=== PATIENT | female | born 1990 | race Two or more races ===

== ENCOUNTER → 2024-06-19 | Outpatient (CLI) | payer BC, SELFPAY ==
--- NOTE | 2024-06-19 09:52 | XR_ITS ---
Examination: Upright PA chest single view TECHNIQUE: Upright PA chest single view Exam date and time: June 19, 2024 0956 hours INDICATIONS: Positive PPD FINDINGS: Normal heart size Lungs are clear. The osseous structures are intact IMPRESSION: No active disease No radiographic findings of tuberculosis
== END | disposition home or self-care (01) ==
LOC: COPL 09:23
PROVIDERS: PCP Family Medicine; Referring Provider Specialist; Visit Provider Specialist
DX: R76.11 Nonspecific reaction to tuberculin skin test without active tuberculosis (principal)
CPT/HCPCS: 71045

== ENCOUNTER 2024-11-21 15:32 | Inpatient (IN) | payer BC, MEDICAID, SELFPAY ==
[2024-11-21] VITALS (10 sets, daily range): BP systolic 117–135; BP diastolic 59–88; PULSE 73–89; RESP 16–98; TEMP 36.6; BMI 32.9
--- NOTE | 2024-11-21 15:00 | XR_ITS ---
Examination: Biophysical profile, ultrasound Date and time of exam: November 21 thousand 25, 1512 hours INDICATIONS: Nonreactive stress test in the doctor's office today Technique: Multiple transabdominal sonographic images of the pelvis abdomen obtained. Attention is directed to the breathing movement, gross body movement, amniotic fluid volume and tone. Findings: Amniotic fluid index Total biophysical profile is 6 of 8. breathing movement is 2. Gross body movement is 2. tone is 2. Qualitative amniotic fluid volume is 2 0 Impression: Biophysical profile is 6 of 8.
--- NOTE | 2024-11-21 15:39 | XR_ITS ---
Examination: age Limited TECHNIQUE: Limited transabdominal sonographic images pelvis Date and time: November 21, 2024 1557 hours INDICATIONS: Labor induction today, unknown presentation. FINDINGS: Viable uterine gestation cephalic presentation. spine maternal left. Cardiac motion 138 BPM. Placenta anterior IMPRESSION: Viable intrauterine gestation cephalic presentation.
[2024-11-21 17:15] LABS: Basophils # (Auto) 0.1 Thou/mm3 (0.0-0.2); Basophils % (Auto) 1 % (0-2.5); Eosinophils # (Auto) 0.1 Thou/mm3 (0.0-0.5); Eosinophils % (Auto) 1 % (0-10); Hematocrit 37.0 % (36.0-46.0); Hemoglobin 12.7 g/dL (12.0-16.0); Immature Granulocytes Auto 0.21 Thou/mm3 (0.00-0.00); Lymphocytes # (Auto) 1.6 Thou/mm3 (1.0-4.8); Lymphocytes % (Auto) 18 % (10-50); Mean Corpuscular HGB Conc 34.3 g/dl (31.0-37.0); Mean Corpuscular Hemoglobin 31.2 pg (25.0-35.0); Mean Corpuscular Volume 91 fL (80-100); Monocytes # (Auto) 0.7 Thou/mm3 (0.0-0.8); Monocytes % (Auto) 8 % (0-12); Neutrophils # (Auto) 6.3 Thou/mm3 (1.8-7.7); Neutrophils % (Auto) 70 % (37-80); Nucleated Red Blood Cell # 0.00 Thou/mm3 (0.00-0.00); Nucleated Red Blood Cell % 0 /100 WBC (0); Platelet Count 191 Thou/mm3 (140-440); RDW Standard Deviation 45.5 fL (36.4-46.3); Red Blood Count 4.07 Miln/mm3 (4.00-5.20); White Blood Count 8.9 Thou/mm3 (3.6-11.0)
[2024-11-21 18:07] LABS: Syphilis Nonreactive (Nonreactive)
[2024-11-22] VITALS (62 sets, daily range): BP systolic 111–130; BP diastolic 58–80; PULSE 63–107; RESP 16–98; TEMP 36.1–36.8; O2SAT 91–100
--- NOTE | 2024-11-22 07:19 | PD.LDHP ---
Documentation for date of: 11/22/24 OB Labor/Induct. HPI History of Present Illness Chief complaint: Oligohydramnios : 1 Para: 0 Term pregnancies: 0 pregnancies: 0 Living children: 0 History of Abortions: Spontaneous and Elective: 0 History of Vaginal deliveries: 0 History of sections: No History of : No Date of last menstrual period: 02/15/24 ARELY: 11/21/24 Gestational age based on last menstrual period: 40 History of present illness: Roz Brown presents to labor and delivery triage after being sent from her doctor's office due to a prolonged deceleration. She was initially noted to have a category one strip in triage, but her amniotic fluid index (MICHELLE) was found to be zero. Her current has been complicated by uterine size-date discrepancy, iron deficiency anemia, and asymptomatic bacteriuria. She has a history of latent tuberculosis and was Quantiferon-Gold positive on tuberculosis screening, though details of follow-up are not available. Roz is Rh-negative and received Rhogam in the third trimester. Given the prolonged deceleration observed at her doctor's office and the finding of zero MICHELLE, Roz was admitted for induction of labor. She has no reported symptoms or complaints at this time. She is a 34-year-old female with an obstetric history of A0 L0. She is currently at 40 weeks and 0 days gestation with an estimated due date of November 21, 2024 based on her last menstrual period. 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 Diagnostic Test Results and Labs: - MICHELLE (Amniotic Fluid Index): 0 - Blood group: O-negative - Antibodies: Not detected - HIV: Negative - RPR: Nonreactive - Hepatitis B surface antigen: Negative - Rubella: Immune - Glucose tolerance test: - 1-hour: 162 mg/dL - 3-hour: 89 mg/dL, 166 mg/dL, 140 mg/dL, 94 mg/dL - Quantiferon-Gold (TB screening): Positive History of Present Adequate Care: Yes Labs Labs: Positive: Rubella Titre, Negative: RPR, Hepatitis B, HIV, Chlamydia, Gonorrhea and Group Beta Strep and Unknown: Herpes Type 1, Herpes Type 2 and Covid-19 Past Medical History Surgical History SURGICAL: Negative Section Meds Home Medications and Allergies Home Medications ?Medication ?Instructions ?Recorded ?Confirmed ?Type aspirin 81 mg tablet,delayed 81 mg PO QDAY 11/21/24 11/21/24 History release (Adult Low Dose Aspirin) ferrous sulfate 325 mg (65 mg 325 mg PO QDAY 11/21/24 11/21/24 History iron) tablet,delayed release vitamins no.102-iron 90 1 cap PO QDAY 11/21/24 11/21/24 History mg-folate 1 mg-dha 200 mg capsule Allergies Allergy/AdvReac Type Severity Reaction Status Date / Time NKA* Allergy Uncoded 11/21/24 14:48 OB Exam Physical Exam Vital signs: Temp Pulse Resp BP 98.3 F 63 16 123/75 11/22/24 05:30 11/22/24 07:10 11/21/24 14:54 11/22/24 07:10 Constitutional Constitutional: no acute distress Routine HEENT Exam Head: Present normocephalic and atraumatic Eye: Present EOMI and PERRL ENT: Present mucous membranes moist Routine Neck Exam Neck: Present supple and trachea midline Routine Cardiovascular Exam Cardiovascular: Present RRR Routine Abdominal Exam Abdominal: Present soft and normoactive bowel sounds Detailed Labor and Delivery Exam Dilation (cm): 0 Effacement (%): 0 Cervix position: posterior station: -4 Consistency: firm Presentation: Vertex Baseline heart rate: 140 monitor accelerations: 15x15 monitor decelerations: None Routine Extremities Exam Extremities: Present full ROM Routine Skin Exam Skin: Present intact, dry and warm Routine Neurological Exam Neurological: Present alert, oriented X3 and CN II-XII intact Routine Psychiatric Exam Psychiatric: Present normal affect and normal thought process OB Results Labs 11/21/24 16:10 Labs: Short CBC 11/21/24 Range/Units 16:10 WBC 8.9 (3.6-11.0) Thou/mm3 Hgb 12.7 (12.0-16.0) g/dL Hct 37.0 (36.0-46.0) % Plt Count 191 (140-440) Thou/mm3 OB Assessment & Plan Assessment and Plan (1) Oligohydramnios antepartum: Status: Acute Assessment and plan: Induction of labor: - 34-year-old at 40 weeks 0 days gestation admitted for induction. - Prolonged deceleration noted at doctor's office and anhydramnios (MICHELLE of zero) on triage evaluation. - Advanced maternal age and uterine size-date discrepancy as additional risk factors. Plan: - Admit patient to inpatient unit for induction of labor. - Initiate cervical ripening with Cervidil. - Obtain labs: CBC, type and screen, RPR. - Offer epidural analgesia when desired by patient. - Implement continuous maternal- monitoring. - Anticipate vaginal delivery. Anhydramnios: - Amniotic fluid index (MICHELLE) of zero on triage evaluation. - Contributing factor for admission and induction decision along with prolonged deceleration. Plan: - Address through induction of labor. - Continue close monitoring as part of labor management. Advanced maternal age: - 34 years old, classified as advanced maternal age for primigravida. - May contribute to increased risk during and labor. Plan: - Monitor closely during labor and delivery process. - Address any age-related risks through appropriate intrapartum management. Rh-negative blood type: - O-negative blood type identified. - Already received RhoGAM in third trimester for Rh incompatibility prophylaxis. Plan: - Confirm Rh status with type and screen. - Administer additional RhoGAM as indicated based on delivery outcome. History of latent tuberculosis: - Positive QuantiFERON-Gold test confirming latent tuberculosis. Plan: - Review tuberculosis status and any previous treatment. - Consider infectious disease consultation if needed for management during labor and period.
[2024-11-22] MEDS: FAMOTIDINE INJ 10 MG/ML VIAL 2 ML 20 MG IV (23:05)
[2024-11-22] MEDS: METOCLOPRAMIDE INJ 5 MG/ML VIAL 2 ML 10 MG IVP (23:05)
[2024-11-22] MEDS: ceFAZolin/D5W 2 GM IV 2 GM/100 ML BAG IV (23:06)
--- NOTE | 2024-11-22 23:38 | ESPR_ITS ---
Documentation for date of: 11/22/24 OB Labor Progress Note Pain Control Pain control: tolerating well Pelvic Exam Dilation (cm): Dimple Effacement (%): 50 station: -2 Amniotic membrane status: Intact Contractions Monitor mode: External Contraction frequency: 5-6 Contraction pattern: Coupling Contraction intensity: Mild Status status: Category ll (Baby 150s with recurrent variable decelerations to the 90s with slow return to baseline lasting approximately 3 minutes. Not in labor.) Assessment and Plan Assessment: induction ongoing Plan OB labor note: Comments: Patient is remote from delivery. She was being induced for an MICHELLE of 0. She or iginally presented from the office with a deceleration. Patient is starting to cramp now and started having irregular contractions. Her cervix remains a dimple 50 and -2. The baby is having recurrent decelerations. For primary low- transverse section.
[2024-11-23] VITALS (18 sets, daily range): BP systolic 103–144; BP diastolic 53–86; PULSE 62–89; RESP 13–22; TEMP 36.4–36.9; O2SAT 97–99
[2024-11-23] MEDS: OXYTOCIN in NS 20 units 20 UNIT/1,000 ML BAG 125 UNIT IV (01:30)
[2024-11-23] MEDS: KETOROLAC INJ 30 MG/ML VIAL IVP (02:07)
--- NOTE | 2024-11-23 03:00 | ESOP_ITS ---
Operative Note - [employer]OR [employer] Procedure Date of procedure: 11/22/24 Procedure Performed: Primary low-transverse section Indication: The patient is a 34-year-old G1, P0 at 40 and 1 sevenths weeks sent over from the office for monitoring secondary to a deceleration in the office. Her care is with Dr Jimenez. As part of her workup, an ultrasound was ordered and her BPP was 8 out of 8 the strip was reactive however the patient goldman d an MICHELLE of 0. She was admitted and induction of labor was attempted with Cytotec. After the patient's fourth Cytotec she started cramping regularly and then started having recurrent variable decelerations. Her cervix remained fingertip dilated 50% -2 station. As patient was remote from delivery with a very unfavorable cervix, she was offered a primary section due to intolerance of early labor and she accepted. Patient was consented for the procedure, she understood the risks of bleeding ,infection, blood transfusion, damage to bowel bladder blood vessels other organs and prolonged hospital stay should any the above occur. Pre-Op diagnosis: 1. Intrauterine at 40 and 1 sevenths weeks 2. Attempted induction of labor for severe oligohydramnios 3. Category 2 tracing, remote from delivery Post-Op diagnosis: Same Anesthesia type: Spinal Procedure description: After obtaining informed consent, the patient was brought back to the operating room and spinal anesthesia administered. She was then prepped and draped in the dorsal supine position with a leftward tilt in a normal sterile fashion. A Olea catheter was inserted to the patient's bladder. Patient was given 2 g of Ancef by anesthesia. A Pfannenstiel skin incision was made with a scalpel and carried down to the underlying fascia. Fascia was incised the midline and the fascial incision extended laterally using Marcum scissors. The superior aspect the fascia was grasped with Sukhdev clamps and the underlying rectus muscles dissected off using blunt and sharp dissection. This was repeated in the inferior aspect the incision. The rectus muscles were the midline, and the peritoneum was picked up and entered sharply with Metzenbaums. This was extended superiorly and inferiorly with good visualization of the bladder. The bladder blade was inserted and the uterus was incised in a low transverse fashion using a scalpel above the bladder reflection. The uterine incision was extended laterally using blunt dissection with the surgeon's fingers. The bag of water was ruptured and minimal fluid noted. The bladder blade was removed, and the infant was delivered atraumatically in a vertex presentation. The cord was clamped and cut after waiting one minute and the was handed off to the waiting pediatric staff. Cord blood was collected. Cord gases were saved. The placenta was then manually removed, and the uterus was exteriorized and cleared of all clots and debris. The uterine incision was repaired using 0 Monocryl in a running locked fashion. Excellent hemostasis was noted. The uter us was returned to the patient's abdominal cavity and copious irrigation carried out with warm normal warm normal saline. The uterine incision was reexamined and noted to be hemostatic. After ensuring the rectus muscles were hemostatic, these were reapproximated in the midline using a running suture of 0 Monocryl. The fascia was closed with 0 Vicryl in a running fashion. The subcutaneous tissues were irrigated and found to be hemostatic. These were reapproximated using running suture of 3-0 plain. The skin was closed with a subcuticular suture of 4-0 Monocryl. The patient tolerated the procedure well, sponge, lap, needle, and instrument counts were correct x 2. The patient went to the recovery area awake and in stable condition. Pathology was none. Fluids: crystalloid Fluid amount (mL): 3,000 Urine output (mL): 500 Specimen: none Implants: None Estimated blood loss (ml): 400 Findings: Liveborn female in the vertex presentation with a loose nuchal cord x 1. No meconium. Apgars were 8 and 9 weight was 6 pounds 5 ounces. The placenta was complete spontaneous grossly normal with no velamentous insertion and not a lot of calcification seen. Tubes, uterus and ovaries appeared grossly normal. Complications: none Surgical staff Operation Date: 11/23/24 00:15 Case Staff SLOT SHIFT MANAGER: Johnny Velez RN First Assistant: Gladys Merida Diagnosis Problem List Completed Was Problem List Reviewed/Reconciled?: Yes
[2024-11-23] MEDS: ONDANSETRON INJ 2 MG/ML INJ 2 ML 4 MG IV (03:02)
--- NOTE | 2024-11-23 03:07 | OBDSUM_ITS ---
Data ([facility]) Data Hx Section: No Maternal Blood Type: A Pos Rubella Titre: Negative RPR: Non-reactive Labs: Negative: RPR, Hepatitis B, HIV, Chlamydia, Gonorrhea and Group Beta Strep : 1 Term: 0 : 0 Livin Abortions: Spontaneous & Theraputic: 0 Delivery Data ([facility]) Labor Data Initiation of labor: Induction Induction/Augmentation Agent: Cytotec-PO and Cervidil ROM date: 11/23/24 ROM time: 23:51 Amniotic membrane rupture type: Artificial Amniotic fluid description: Clear Delivery Data EDC: 12/05/24 EDC calculated by:: LMP/early US confirmation Date of arrival to unit: 11/21/24 Time of arrival to unit: 16:00 delivery date: 11/23/24 delivery time: 23:51 Gestational age (weeks): 40 Gestational age (days): 1 Placenta delivery date: 11/23/24 Placenta delivery time: 23:52 Delivered by: [facility] ([facility]) Delivery nurse: YAHAIRA Summers [place] nurse: YAHAIRA Chaudhry Histology Supervisor at delivery: No Support person(s) at delivery: FOB IN OR Delivery Method Delivery method: Low Transverse Presentation: Vertex position: OA Anesthesia Type Anesthesia Type: Spinal Anesthesia type: Spinal Placenta Placenta delivery description: Spontaneous Cord blood sent to lab: Yes cord blood collection: Cord Blood Type Episiotomy Episiotomy description: None EBL Estimated blood loss (ml): 400 Umbilical Cord cord description: 3 Vessels Additional Procedures See op report for further details Complications Complications: None [facility] Data ([facility]) Data [facility]'s name: Ct order: 1 [facility]'s gender: Female Identification band number: [id number] weight (gms): 2850 g Weight (pounds): 6 lbs and 4.5 ozs length: 50.5 cm 1 minute: 8 5 minutes: 9 10 minutes: 9
--- NOTE | 2024-11-23 07:49 | PD.LDPPPRG ---
Subjective Subjective Interval history: Delivery type: Patient doing well this morning. No acute complaints. Ambulating, tolerating p.o. and voiding without difficulty. HTN/Pre-Eclampsia screen: No chest pain, shortness of breath, headache, visual changes, epigastric or right upper quadrant pain. Breast-feeding, lochia diminishing. Bowel: Flatus+/ BM+ Exam Vital Signs Temp Pulse Resp BP Pulse Ox O2 Del Method 97.7 F 83 14 114/80 98 Room Air 11/23/24 03:00 11/23/24 03:00 11/23/24 03:00 11/23/24 03:00 11/23/24 03:00 11/23/24 03:00 Constitutional Constitutional: no acute distress Routine HEENT Exam Head: Present normocephalic and atraumatic Eye: Present EOMI and PERRL ENT: Present mucous membranes moist Routine Neck Exam Neck: Present supple and trachea midline Routine Respiratory Exam Respiratory: Present chest non-tender, lungs clear, normal breath sounds and no resp distress Routine Cardiovascular Exam Cardiovascular: Present RRR Routine Abdominal Exam Abdominal: Present soft and normoactive bowel sounds Routine Extremities Exam Extremities: Present full ROM Routine Skin Exam Skin: Present intact, dry and warm Routine Neurological Exam Neurological: Present alert, oriented X3 and CN II-XII intact Routine Psychiatric Exam Psychiatric: Present normal affect and normal thought process Objective Labs 11/21/24 16:10 Assessment & Plan Problem List (1) Oligohydramnios antepartum: Status: Acute (2) delivery delivered: Status: Acute Assessment and plan: 1. Continue routine /post-op care 2. Labs reviewed, cbc appropriate 3. Remove dressing/Olea 4. Encourage to ambulate, shower 5. Encourage PO intake, breast feeding Time Spent With Patient Time: Total time spent is greater than 50% in coordination of care (as documented) at patient's floor/unit and/or counseling patient:
[2024-11-23] MEDS: DOCUSATE SOD 100 MG CAPSULE PO (09:48)
[2024-11-23 11:47] LABS: Basophils # (Auto) 0.0 Thou/mm3 (0.0-0.2); Basophils % (Auto) 0 % (0-2.5); Eosinophils # (Auto) 0.0 Thou/mm3 (0.0-0.5); Eosinophils % (Auto) 0 % (0-10); Hematocrit 33.1 % (36.0-46.0); Hemoglobin 11.5 g/dL (12.0-16.0); Immature Granulocytes Auto 0.10 Thou/mm3 (0.00-0.00); Lymphocytes # (Auto) 1.2 Thou/mm3 (1.0-4.8); Lymphocytes % (Auto) 13 % (10-50); Mean Corpuscular HGB Conc 34.7 g/dl (31.0-37.0); Mean Corpuscular Hemoglobin 31.8 pg (25.0-35.0); Mean Corpuscular Volume 91 fL (80-100); Monocytes # (Auto) 0.8 Thou/mm3 (0.0-0.8); Monocytes % (Auto) 8 % (0-12); Neutrophils # (Auto) 7.5 Thou/mm3 (1.8-7.7); Neutrophils % (Auto) 78 % (37-80); Nucleated Red Blood Cell # 0.00 Thou/mm3 (0.00-0.00); Nucleated Red Blood Cell % 0 /100 WBC (0); Platelet Count 187 Thou/mm3 (140-440); RDW Standard Deviation 45.4 fL (36.4-46.3); Red Blood Count 3.62 Miln/mm3 (4.00-5.20); White Blood Count 9.7 Thou/mm3 (3.6-11.0)
[2024-11-23] MEDS: HYDROcodone/APAP 5/325 TABLET 1 TAB PO (13:42)
[2024-11-24] MEDS: HYDROcodone/APAP 5/325 TABLET 2 TAB PO (00:31)
[2024-11-24] MEDS: SIMETHICONE 80 MG CHEW PO (00:31)
[2024-11-24] MEDS: IBUPROFEN TAB 400 MG TABLET 800 MG PO ×3 (02:18→22:42)
[2024-11-24 03:31] VITALS: BP 118/73; PULSE 74; RESP 18; TEMP 36.8; O2SAT 97
[2024-11-24 06:06] LABS: Basophils # (Auto) 0.0 Thou/mm3 (0.0-0.2); Basophils % (Auto) 0 % (0-2.5); Eosinophils # (Auto) 0.1 Thou/mm3 (0.0-0.5); Eosinophils % (Auto) 1 % (0-10); Hematocrit 32.4 % (36.0-46.0); Hemoglobin 11.1 g/dL (12.0-16.0); Immature Granulocytes Auto 0.14 Thou/mm3 (0.00-0.00); Lymphocytes # (Auto) 1.5 Thou/mm3 (1.0-4.8); Lymphocytes % (Auto) 13 % (10-50); Mean Corpuscular HGB Conc 34.3 g/dl (31.0-37.0); Mean Corpuscular Hemoglobin 31.6 pg (25.0-35.0); Mean Corpuscular Volume 92 fL (80-100); Monocytes # (Auto) 0.9 Thou/mm3 (0.0-0.8); Monocytes % (Auto) 7 % (0-12); Neutrophils # (Auto) 9.1 Thou/mm3 (1.8-7.7); Neutrophils % (Auto) 78 % (37-80); Nucleated Red Blood Cell # 0.00 Thou/mm3 (0.00-0.00); Nucleated Red Blood Cell % 0 /100 WBC (0); Platelet Count 184 Thou/mm3 (140-440); RDW Standard Deviation 47.1 fL (36.4-46.3); Red Blood Count 3.51 Miln/mm3 (4.00-5.20); White Blood Count 11.7 Thou/mm3 (3.6-11.0)
--- NOTE | 2024-11-24 07:19 | ESPR_ITS ---
RE: SALVATORE VERMA : 1990 DATE OF SERVICE: 11/24/2024 Postop day number 1. The patient denies any problem or complaint. She is voiding and ambulating and tolerating regular diet, passing flatus. She denies any excessive vaginal bleeding. She denies any dizziness or lightheadedness. She denies any chest pain, palpitations, shortness of breath or lower extremity pain. OBJECTIVE: Vital Signs: Blood pressure 118/73, heart rate 74, respirations 18, temperature is 98.2, pulse oximetry is 97% on room air. Lungs: Clear to auscultation bilaterally. Heart: Regular rate and rhythm. Abdomen: Incision clear and intact. Fundus is firm. Extremities: Nontender. Hemoglobin pre-delivery is 11.5, post-delivery is 11.1. ASSESSMENT: Postoperative day number 1, status post delivery. PLAN: Remove dressing, discontinue IV, encourage ambulation, support. Possible discharge home tomorrow. DT: 07:06:46 TT: 07:18:00 Ref: [id number] - TID: [id number]
[2024-11-24 08:00] VITALS: BP 124/72; PULSE 78; RESP 18; TEMP 36.6; O2SAT 97
[2024-11-24] MEDS: DOCUSATE SOD 100 MG CAPSULE PO (08:21)
--- NOTE | 2024-11-24 08:32 | ESDS_ITS ---
DS: Providers Provider Date of admission: 11/21/24 15:32 Primary care physician: Physician No Primary/Family Admitting Provider: Vimal Funez MD Attending Provider on Admission: Lamont Jimenez MD Consults: 11/23/24 01:13 Referral Routine Comment: 11/23/24 02:12 Referral Routine Comment: Attending Provider on DC: Lamont Jimenez MD Discharging Provider: Lamont Jimenez MD DS: Diagnosis Problem List Completed Was Problem List Reviewed/Reconciled?: Yes Summary/Hosp Course Brief History: Roz Brown presents to labor and delivery triage after being sent from her doctor's office due to a prolonged deceleration. She was initially noted to have a category one strip in triage, but her amniotic fluid index (MICHELLE) was found to be zero. Her current has been complicated by uterine size-date discrepancy, iron deficiency anemia, and asymptomatic bacteriuria. She has a history of latent tuberculosis and was Quantiferon-Gold positive on tuberculosis screening, though details of follow-up are not available. Roz is Rh-negative and received Rhogam in the third trimester. Given the prolonged deceleration observed at her doctor's office and the finding of zero MICHELLE, Roz was admitted for induction of labor. She has no reported symptoms or complaints at this time. She is a 34-year-old female with an obstetric history of A0 L0. She is currently at 40 weeks and 0 days gestation with an estimated due date of November 21, 2024 based on her last menstrual period. ROS: Negative except as stated above, limited to ETCHER ENAMELING and pertinent complaints. Diagnostic Test Results and Labs: - MICHELLE (Amniotic Fluid Index): 0 - Blood group: O-negative - Antibodies: Not detected - HIV: Negative - RPR: Nonreactive - Hepatitis B surface antigen: Negative - Rubella: Immune - Glucose tolerance test: - 1-hour: 162 mg/dL - 3-hour: 89 mg/dL, 166 mg/dL, 140 mg/dL, 94 mg/dL - Quantiferon-Gold (TB screening): Positive Peripartum Data Delivery Method: Low Transverse Episiotomy Description: None Procedures: Procedures Operation Date: 11/23/24 00:15 Actual Procedure Side Surgeon p in OB [facility] Canales ([facility])MD Time Spent with Patient Time attestation: Total time spent providing and/or coordinating discharge services: Exam Vital Signs Temp Pulse Resp BP Pulse Ox O2 Del Method 98.2 F 74 18 118/73 97 Room Air 11/24/24 03:31 11/24/24 03:31 11/24/24 03:31 11/24/24 03:31 11/24/24 03:31 11/24/24 03:31 Discharge Plan Plan Patient Disposition: HOME (Self Care) Patient condition on transfer: Stable Prescriptions/Referrals Prescriptions/Med Rec: New hydrocodone-acetaminophen 5-325 mg tablet 1 tab PO Q6H MDD 4 PRN (Reason: pain) Qty: 20 0RF ibuprofen 600 mg tablet 600 mg PO QID MDD 4 PRN (Reason: pain) Qty: 30 0RF Continued ferrous sulfate 325 mg (65 mg iron) tablet,delayed release (DR/EC) 325 mg PO QDAY PNV [id number] 90 mg iron- 1 mg-200 mg capsule 1 cap PO QDAY Discontinued aspirin [Adult Low Dose Aspirin] 81 mg tablet,delayed release (DR/EC) 81 mg PO QDAY Referrals: No Primary/Family,Physician [Primary Care Provider] - Patient/Caregiver Discharge Instructions Discharge Activity: activity as tolerated Other Discharge Activity Instructions:: Follow up office [address]enez Education Materials: C Section Dc Print Language: Luxembourgish Stand Alone Forms: Nicole Award Info., Patient Portal Info Letter Discharge Order Discharge Orders: Discharge (Routine); Ordered 11/25/24 Ordered By: Lamont Jimenez Planned Discharge Date 11/25/24
[2024-11-24 12:00] VITALS: BP 113/75; PULSE 89; RESP 18; TEMP 36.8; O2SAT 97
[2024-11-24 16:00] VITALS: BP 118/76; PULSE 82; RESP 16; TEMP 37; O2SAT 97
[2024-11-24] MEDS: ACETAMINOPHEN 325 MG TABLET 650 MG PO (19:37)
[2024-11-24 19:45] VITALS: BP 132/73; PULSE 79; RESP 13; TEMP 36.8; O2SAT 97
[2024-11-25] MEDS: ACETAMINOPHEN 325 MG TABLET 650 MG PO (03:23)
[2024-11-25 03:31] VITALS: BP 121/76; PULSE 70; RESP 16; TEMP 36.6; O2SAT 98
[2024-11-25] MEDS: IBUPROFEN TAB 400 MG TABLET 800 MG PO (07:07)
--- NOTE | 2024-11-25 07:12 | PD.LDPPPRG ---
Subjective Subjective Interval history: Patient denies any problem or complaint Exam Vital Signs Temp Pulse Resp BP Pulse Ox O2 Del Method 97.8 F 70 16 121/76 98 Room Air 11/25/24 03:31 11/25/24 03:31 11/25/24 03:31 11/25/24 03:31 11/25/24 03:31 11/25/24 03:31 Routine Respiratory Exam Comments: Clear to auscultation bilaterally Routine Cardiovascular Exam Comments: Regular rate and rhythm Routine Abdominal Exam Comments: Incision clear and intact Routine Extremities Exam Comments: Nontender Objective Labs 11/24/24 05:30 Assessment & Plan Problem List (1) Oligohydramnios antepartum: Status: Acute (2) delivery delivered: Status: Acute Assessment and plan: Discharge home Discharge instructions given Follow-up in the office in 1 week Time Spent With Patient Time: Total time spent is greater than 50% in coordination of care (as documented) at patient's floor/unit and/or counseling patient:
[2024-11-25 07:15] VITALS: BP 114/74; PULSE 76; RESP 16; TEMP 36.6; O2SAT 98
[2024-11-25] MEDS: DOCUSATE SOD 100 MG CAPSULE PO (08:56)
== END 2024-11-25 13:15 | disposition home or self-care (01) | DRG 788 ==
LOC: S4S1 15:58 → S4SX 15:58 → S4NX 11-23 00:07
PROVIDERS: Obstetrics & Gynecology; Admitting Provider Obstetrics & Gynecology; Referring Provider Obstetrics & Gynecology; Visit Provider Specialist
PROC: (CPT 59514; principal; 2024-11-23)
DX: O41.03X0 Oligohydramnios, third trimester, not applicable or unspecified (principal); O76 Abnormality in fetal heart rate and rhythm complicating labor and delivery; O69.81X0 Labor and delivery complicated by cord around neck, without compression, not applicable or unspecified; O99.02 Anemia complicating childbirth; D50.9 Iron deficiency anemia, unspecified; Z37.0 Single live birth; Z3A.40 40 weeks gestation of pregnancy; Z86.15 Personal history of latent tuberculosis infection; Z67.41 Type O blood, Rh negative
CPT/HCPCS: 36415; 59025; 59409; 76815; 76819; 85025; 86780; 86850; 86900; 86901; 94762; A4217; A4314; A4649; J0689; J1885; J2274; J2371; J2405; J2590; J2765; J3010; J3490; A9270; J2270